=== PATIENT | female | born 1935 | race Caucasian/White ===

== ENCOUNTER → 2020-06-23 | Outpatient (CLI) | payer OTHER ==
[~2020-06-23] MED LIST: ATENOLOL 25MG T25 M1 PO; ATIVAN0.5 MG PO; CITALOPRAM HBR40 MG PO; GLIPIZIDE ER5 MG PO; LISINOPRIL-HCT1 EACH PO; LISINOPRIL10 MG; NORCO 10-325 T1 EACH PO; PRILOSEC40 MG PO; ZOCOR 20 MG TAB20 M1 PO; ZOLPIDEM TARTRA10 MG PO
== END ==
LOC: SJCVC 14:52
PROVIDERS: ATTEND Internal Medicine Cardiovascular Disease
DX: R94.31 Abnormal electrocardiogram [ECG] [EKG] (principal); R55 Syncope and collapse; I10 Essential (primary) hypertension; E78.00 Pure hypercholesterolemia, unspecified

== ENCOUNTER → 2020-07-13 | Outpatient (CLI) | payer OTHER | LOC: SJCVCIMAG 10:27 | PROVIDERS: ATTEND Internal Medicine Cardiovascular Disease | DX: I65.23 Occlusion and stenosis of bilateral carotid arteries (principal); I49.1 Atrial premature depolarization; R94.31 Abnormal electrocardiogram [ECG] [EKG]; I49.3 Ventricular premature depolarization; I10 Essential (primary) hypertension; I48.0 Paroxysmal atrial fibrillation; I49.5 Sick sinus syndrome; Z79.899 Other long term (current) drug therapy ==

== ENCOUNTER → 2020-07-27 | Outpatient (CLI) | payer OTHER | LOC: LAB 08:22 | PROVIDERS: ATTEND Internal Medicine Cardiovascular Disease | DX: Z01.812 Encounter for preprocedural laboratory examination (principal); Z20.828 Contact with and (suspected) exposure to other viral communicable diseases ==

== ENCOUNTER → 2020-08-03 | Outpatient (CLI) | payer OTHER | LOC: LAB | PROVIDERS: ATTEND Internal Medicine Cardiovascular Disease | DX: Z01.812 Encounter for preprocedural laboratory examination (principal); Z20.828 Contact with and (suspected) exposure to other viral communicable diseases ==

== ENCOUNTER 2020-08-08 06:50 | Observation (INO) | payer OTHER ==
[2020-08-08] VITALS (17 sets, daily range): BP systolic 134–188; BP diastolic 74–122
[~2020-08-08] VITALS: Ht 165.1 cm; Wt 74.8 kg
[2020-08-08 07:39] LABS: ABSOLUTE NEUTROPHILS 3.4 thou/uL (1.4-8.2); BASOPHILS 1.3 % (0.0-2.0); EOSINOPHILS 3.6 % (0.0-3.0); HEMATOCRIT 40.8 % (37.0-47.0); HEMOGLOBIN 13.3 gm/dL (12.0-15.0); LYMPHOCYTES 33.7 % (24.0-44.0); MCH 28.2 pg (26.0-34.0); MCHC 32.5 g/dL (28.0-37.0); MCV 86.8 fL (80.0-100.0); MONOCYTES 6.9 % (1.0-8.0); PLATELET COUNT 221 thou/uL (150-400); POLYS 54.5 % (36.0-66.0); RDW 14.3 % (10.5-14.5); WBC 6.2 thou/uL (4.0-11.0)
[2020-08-08 07:54] LABS: CALCIUM 9.4 mg/dL (8.5-10.1); CREATININE 1.1 mg/dL (0.6-1.0); POTASSIUM 4.9 mmol/L (3.5-5.1)
[2020-08-08 07:56] LABS: PROTIME 10.2 Seconds (9.3-11.4)
[2020-08-08 08:02] LABS: ALBUMIN 3.6 g/dL (3.4-5.0); TOTAL BILIRUBIN 0.4 mg/dL (0.2-1.0); TOTAL PROTEIN 7.3 g/dL (6.4-8.2)
[2020-08-08] MEDS ORDERED: ATIVAN0.5 M1 PO (08:07)
[2020-08-08] MEDS ORDERED: ADVIL200 M3 PO (08:08)
[2020-08-08] MEDS ORDERED: ASA81BEC PO (08:09)
[2020-08-08] MEDS ORDERED: CLARITIN10 MG PO (08:10)
[2020-08-08] MEDS ORDERED: ARICEPT10 M1 PO (08:10)
[2020-08-08] MEDS ORDERED: MAGNESIUM400 MG PO (08:12)
[2020-08-08] MEDS ORDERED: LEXAPRO5 MG PO (08:12)
[2020-08-08] MEDS ORDERED: METFORMIN HCL500 M3 PO (08:13)
[2020-08-08] MEDS ORDERED: NORVASC 2.5 MG2.5 M1 PO (08:14)
[2020-08-08] MEDS ORDERED: OXYBUTYNIN 5 MG5 M2 PO (08:15)
[2020-08-08] MEDS ORDERED: TRAMADOL 50 MG50 MG PO (08:16)
[2020-08-08] MEDS ORDERED: RESTORIL15 M1 PO (08:16)
--- NOTE | 2020-08-08 11:56 | NUR ---
PT ARRIVED TO UNIT AT APPROX 1030 FROM EP LAB ACCOMPANIED BY DAUGHTER. PT AWAKE, ORIENTED. DROWSY. VSS- BP ELEVATED. WILL TREAT PER ORDERS. LEFT CHEST SITE OPEN TO AIR WITH SURGICAL GLUE. DRY AND INTACT, NO HEMATOMA. ADMISSION COMPLETE. TELE STRIP PRINTED AND DOCUMENTED. PT RESTING IN BED DENIES CONCERNS/NEEDS AT THIS TIME. WILL CONTINUE TO MONITOR PT AND CHEST SITE. WILL FOLLOW POC.
[2020-08-08] MEDS ORDERED: ZOFRAN4 MG PO (12:12)
--- NOTE | 2020-08-08 14:08 | P ---
[facility] [place] [address] PROCEDURE REPORT Name: MIYA FAM Room #: 214-P [facility] M.R.#: [id number] Admission: 08/08/20 Attend Phys: Naveed Godfrey MD Discharge: Date of : 39 Report #: [id number] THIS REPORT FOR: cc: Julien Huang,Julien Rapp,Naveed Bell MD ~ CC: Julien Godfrey DATE OF SERVICE: 08/08/2020 PROCEDURE: Pacemaker implantation. PREOPERATIVE DIAGNOSIS: Sick sinus syndrome. POSTOPERATIVE DIAGNOSIS: Sick sinus syndrome. HISTORY: The patient an 85-year-old female with history of paroxysmal atrial fibrillation as well as sick sinus syndrome with symptomatic bradycardia and periods of sinus arrest, here for dual chamber pacemaker implantation. ANESTHESIA: The patient underwent MAC anesthesia with no anesthesia related complications. DESCRIPTION OF PROCEDURE: The patient underwent informed consent where we discussed the details of the procedure including the risks, which include but not limited to bleeding, infection, vascular damage, cardiac perforation, pneumothorax. She understood these risks and is willing to proceed. The patient was brought to EP laboratory in fasting and sedated state, prepped and draped in a sterile fashion. She received IV antibiotics prior to initiation of the procedure and underwent a venogram showing patency of the left axillary vein and she did receive premedication for a known contrast allergy. Next, I injected lidocaine at the incision site. A pocket was created over the prepectoral fascia and the access was obtained twice to left axillary vein using the extrathoracic approach with sheaths positioned using the modified Seldinger technique. Next, under fluoroscopy, leads were positioned in the right ventricular atrial apex and right atrial appendage, both with adequate pacing and sensing thresholds. These were sutured to the prepectoral fascia using Ethibond suture. The pacemaker was connected to the device. Tug test performed. Device placed in the pocket. Pocket irrigated with vancomycin. Pocket closed in 2 layers using 2-0 for the deep layer, 3-0 for the middle layer and surgical glue for the outer skin layer. The patient awoke neurologically and hemodynamically intact. No complications and no significant bleeding. The implanted pacemaker and leads were Cert[employer] with a generator, model #W3DR01, serial #[id number]. Atrial lead 5076, serial #[id number]. RV lead was [facility] [address] [place] [address] PROCEDURE REPORT Name: MIYA FAM Room #: 214-P [facility] Lizbeth Cast#: [id number] Admission: 08/08/20 Attend Phys: Naveed Godfrey MD Discharge: Date of : 39 Report #: [id number] a 5076, model #[id number]. Atrial lead demonstrates a P-wave of 2 millivolts, pacing impedance of 494 ohms and pacing threshold 0.7 volts at 0.4 milliseconds. The RV lead demonstrated R-wave of 12.5 millivolts, pacing impedance of 875 ohms and pacing threshold 0.9 volts at 0.4 milliseconds. The device was programmed to the AAI/DDDR mode 60-130. CONCLUSIONS: 1. Dual chamber pacemaker implantation. 2. Satisfactory atrial and ventricular pacing and sensing thresholds. <ELECTRONICALLY SIGNED> By: Naveed Godfrey MD 08/08/20 [id number] Naveed Godfrey MD /nt
--- NOTE | 2020-08-09 03:10 | NUR ---
SSESSMENT: PT REMAIN ALERT AND ORIENT TIMES THREE, FORGETFUL AT TIMES. PT REQUESTED TO HAVE PRN TEMAZEPAM HS. VSS, AFEBRILE. SR A-PACED PER MONITOR. PLAN IS TO DC TO HOME LATER TODAY. LEFT CHEST INCISION IS TONJA WITH DERMABOND, ARM IMMOBILIZER INTACT. NO BM THIS SHIFT. SLOW PROGRESS TOWARDS DC GOALS. WILL CONTINUE TO MONITOR.
[2020-08-09 05:39] VITALS: BP 104/64
[2020-08-09 07:16] VITALS: BP 146/53
[2020-08-09 10:30] VITALS: BP 146/53
--- NOTE | 2020-08-09 11:16 | NUR ---
ASSESSMENT CHARTED - MEDS PER MAR - UP TO THE CHIAR - IMMOBILIZER REMOVED BY DR- EDUCATED IN PRECAUTIONS FOR ARM USE - PT UP TO THE CHAIR - MEGHANN DIET AND FLUIDS. GIVEN TRAMDOL 1 FOR CO'S OF GENERALIZED PAIN WITH MOD RELIEF. PT HOME THIS AM - INSTRUCTION REVHOME CARE/ FOLLOW UP GIVEN TO PATIENT AND DAUGHTER - DAUGHTER STATED UNDERSTANING QUESTIONALBE TO HOW MUCHPATIENT WILL REMEMBER OF INSTRUCTIONS AND PRECAUTIONS. DAUGHTER STATED THAT SHE LIVES CLOSE AND WILL ASSIST NEEDED. PT LEFT UNIT VIA WHEEL CHAIR - HOME VIA PVT VEHICLE WITH DAUGHTER AND . NO CO'S AT TIME OF D/C.
== END 2020-08-09 11:00 | disposition home or self-care (01) ==
LOC: CATH 06:50 → 2N 10:40 → CATH 13:01 → 2N 08-09 11:00
PROVIDERS: ADMIT Internal Medicine Cardiovascular Disease; ATTEND Internal Medicine Cardiovascular Disease
DX: I49.5 Sick sinus syndrome (principal); I48.0 Paroxysmal atrial fibrillation; I45.5 Other specified heart block; Z79.82 Long term (current) use of aspirin; Z79.899 Other long term (current) drug therapy
CPT/HCPCS: 62110; 62900; 70005

== ENCOUNTER → 2020-08-23 | Outpatient (CLI) | payer OTHER ==
[~2020-08-23] MED LIST changes: +ADVIL200 M3 PO; +ARICEPT10 M1 PO; +ASA81BEC PO; +ATIVAN0.5 M1 PO; +CLARITIN10 MG PO; +LEXAPRO5 MG PO; +MAGNESIUM400 MG PO; +METFORMIN HCL500 M3 PO; +NORVASC 2.5 MG2.5 M1 PO; +OXYBUTYNIN 5 MG5 M2 PO; +RESTORIL15 M1 PO; +TRAMADOL 50 MG50 MG PO; +ZOFRAN4 MG PO
== END ==
LOC: SJCVC 13:03
PROVIDERS: ATTEND Internal Medicine Cardiovascular Disease
DX: Z45.018 Encounter for adjustment and management of other part of cardiac pacemaker (principal); I48.0 Paroxysmal atrial fibrillation; R00.1 Bradycardia, unspecified; I48.3 Typical atrial flutter; I10 Essential (primary) hypertension; E11.9 Type 2 diabetes mellitus without complications; E78.5 Hyperlipidemia, unspecified; K21.9 Gastro-esophageal reflux disease without esophagitis; M19.90 Unspecified osteoarthritis, unspecified site; Z79.82 Long term (current) use of aspirin; Z79.899 Other long term (current) drug therapy

== ENCOUNTER → 2020-11-24 | Outpatient (CLI) | payer OTHER, MEDICARE | LOC: SJCVC 14:04 | PROVIDERS: ATTEND Internal Medicine | DX: I48.0 Paroxysmal atrial fibrillation (principal); R94.31 Abnormal electrocardiogram [ECG] [EKG]; I49.5 Sick sinus syndrome; I10 Essential (primary) hypertension; R55 Syncope and collapse; E11.9 Type 2 diabetes mellitus without complications; E78.5 Hyperlipidemia, unspecified; G89.29 Other chronic pain; K21.9 Gastro-esophageal reflux disease without esophagitis; Z95.0 Presence of cardiac pacemaker; Z79.899 Other long term (current) drug therapy; Z85.3 Personal history of malignant neoplasm of breast; Z86.73 Personal history of transient ischemic attack (TIA), and cerebral infarction without residual deficits ==

== ENCOUNTER → 2021-02-27 | Outpatient (CLI) | payer OTHER, MEDICARE | LOC: SJCVC 13:11 | PROVIDERS: ATTEND Internal Medicine Cardiovascular Disease | DX: R94.31 Abnormal electrocardiogram [ECG] [EKG] (principal); I44.0 Atrioventricular block, first degree; I49.8 Other specified cardiac arrhythmias; I48.0 Paroxysmal atrial fibrillation; I49.5 Sick sinus syndrome; I10 Essential (primary) hypertension; F41.9 Anxiety disorder, unspecified; K21.9 Gastro-esophageal reflux disease without esophagitis; E78.5 Hyperlipidemia, unspecified; M19.90 Unspecified osteoarthritis, unspecified site; E11.9 Type 2 diabetes mellitus without complications; Z79.899 Other long term (current) drug therapy ==

== ENCOUNTER → 2021-09-04 | Outpatient (CLI) | payer OTHER, MEDICARE | LOC: SJCVC 14:02 | PROVIDERS: ATTEND Nuclear Medicine Nuclear Cardiology | DX: I10 Essential (primary) hypertension (principal); I25.10 Atherosclerotic heart disease of native coronary artery without angina pectoris; I48.91 Unspecified atrial fibrillation; I44.7 Left bundle-branch block, unspecified; I77.9 Disorder of arteries and arterioles, unspecified; E78.00 Pure hypercholesterolemia, unspecified; G45.9 Transient cerebral ischemic attack, unspecified; R55 Syncope and collapse; F41.9 Anxiety disorder, unspecified; E11.9 Type 2 diabetes mellitus without complications; K21.9 Gastro-esophageal reflux disease without esophagitis; E78.5 Hyperlipidemia, unspecified; Z88.2 Allergy status to sulfonamides; Z88.8 Allergy status to other drugs, medicaments and biological substances; Z82.49 Family history of ischemic heart disease and other diseases of the circulatory system; Z79.82 Long term (current) use of aspirin; Z79.84 Long term (current) use of oral hypoglycemic drugs; Z79.899 Other long term (current) drug therapy ==

== ENCOUNTER 2021-09-07 11:17 | Observation (INO) | payer OTHER, MEDICARE ==
[~2021-09-07] VITALS: Ht 165.1 cm; Wt 74.8 kg
[2021-09-07 12:45] LABS: HEMATOCRIT 41.9 % (37.0-47.0); MCH 29.8 pg (26.0-34.0); MCHC 33.4 g/dL (28.0-37.0); MCV 89.3 fL (80.0-100.0); RBC 4.69 mil/uL (4.20-5.00); RDW 12.8 % (10.5-14.5); WBC 14.2 thou/uL (4.0-11.0)
[2021-09-07 13:00] LABS: CALCIUM 9.4 mg/dL (8.5-10.1); CREATININE 1.4 mg/dL (0.6-1.0)
[2021-09-07 13:03] LABS: POTASSIUM 5.3 mmol/L (3.5-5.1)
[2021-09-07 18:09] VITALS: BP 145/61
[2021-09-07 19:06] VITALS: BP 145/92
--- NOTE | 2021-09-07 19:33 | NUR ---
PATIENT ABLE TO TOLERATE DIET, WALK WITHOUT COMPLICATIONS, VOID. VS STABLE. CATH SITE C/D/I WITH NO HEMATOMA OR OOZING. NO QUESTIONS OR CONERNS FROM PATIENT OR FAMILY. DISCHARGE HOME. DISCHARGE PAPERWORK ALREADY DONE AND SIGNED IN [facility]. TAKEN BY WHEELCHAIR TO CAR
== END 2021-09-07 19:36 | disposition home or self-care (01) ==
LOC: CATH 11:17 → 2N 17:47
PROVIDERS: ADMIT Nuclear Medicine Nuclear Cardiology; ATTEND Nuclear Medicine Nuclear Cardiology
DX: I65.29 Occlusion and stenosis of unspecified carotid artery (principal); I73.9 Peripheral vascular disease, unspecified; I12.9 Hypertensive chronic kidney disease with stage 1 through stage 4 chronic kidney disease, or unspecified chronic kidney disease; N18.9 Chronic kidney disease, unspecified